=== PATIENT | female | born 1950 | race Caucasian/White ===

== ENCOUNTER → 2022-04-16 | Outpatient (CLI) | payer MEDICARE, BC, SELFPAY ==
--- NOTE | 2022-04-16 13:50 | EKG12_ITS ---
Test Reason : PRE OP Blood Pressure : / mmHG Vent. Rate : 077 BPM Atrial Rate : 077 BPM P-R Int : 190 ms QRS Dur : 064 ms QT Int : 380 ms P-R-T Axes : 077 073 073 degrees QTc Int : 430 ms Normal sinus rhythm Normal ECG Confirmed by HUYEN FONTENOT, ANASTACIA ([id number]), editor in chief newspaper RAHEEM QUINTANILLA ([id number]) on 04/17/2022 10:06:53 AM Referred By: Jr Pablo Confirmed By:ANASTACIA MATSON MD
[2022-04-16 16:06] LABS: Absolute Lymphocyte Count 2.48 X10^3/uL (0.83-4.51); Absolute Neutrophil Count 6.8 X10^3/uL (2.0-7.7); Basophil# 0.05 X10^3/uL; Basophil% 0.5 % (0-1); Eosinophil# 0.26 X10^3/uL; Eosinophils% 2.5 % (0-5); Hematocrit 40.2 % (37-47); Lymphocyte # 2.48 X10^3/ul (0.83-4.51); Mean Corp Hgb Conc 32.3 g/dL (32-36); Mean Corpuscular Hgb 30.4 pg (27.0-32.0); Mean Corpuscular Volume 94.1 fL (81-99); Mean Platelet Vol. 10.6 fl (6.2-12.0); Monocyte# 0.71 X10^3/uL; Monocyte% 6.9 % (0-10); NRBC Flagged by Analyzer 0 % (0-5); Neutrophil # 6.83 X10^3/uL (2.7-7.7); Neutrophil % 65.9 % (47-70); Platelet Count 337 K/mm3 (150-450); RBC Distribution Width CV 12.6 % (11.6-14.6); RBC Distribution Width SD 43.4 fl (35.1-43.9); Red Blood Count 4.27 M/mm3 (4.2-5.4); White Blood Count 10.4 K/mm3 (4.4-11.0)
[2022-04-16 16:42] LABS: Albumin, Serum 3.6 g/dL (3.2-5.0); Anion Gap 2 (5-15); BUN 19 mg/dL (7-18); BUN/Creat Ratio 17.6 RATIO (10-20); Calcium,Total 8.6 mg/dL (8.5-10.1); Chloride 108 mmol/L (98-107); Creatinine, Serum 1.08 mg/dL (0.55-1.02); EST Glomerular Filtration Rate 53 mL/min (>60); Est Glom Filt Rate - Afr Amer 64 mL/min (>60); Glucose 101 mg/dL (74-106); Potassium 3.9 mmol/L (3.5-5.1); Sodium Level 140 mmol/L (136-145)
[2022-04-16 17:07] LABS: Hemoglobin A1c 5.9 % (3.8-5.6)
== END | disposition home or self-care (01) ==
PROVIDERS: Referring Provider Physician Assistant; Visit Provider Physician Assistant
DX: Z01.818 Encounter for other preprocedural examination (principal)
CPT/HCPCS: 36415; 80048; 82040; 83036; 85025; 93005

== ENCOUNTER → 2022-04-26 | Outpatient (CLI) | payer MEDICARE, BC, SELFPAY ==
--- NOTE | 2022-04-26 12:00 | HIP_PTH ---
PATIENT: HOLLEY CASTELLANOS LOC: [facility] U#:[id number] AGE/SX: 71/F ROOM: RE04/26/[address]: Dr. Manan Guthrie DO : 1950 BED: DIS: 04/26/2022 SPEC #: [id number] RECD: 04/30/22 09:33 STATUS: SOBIA REQ #: [id number] DEVORA: 04/26/22 12:[address]: Manan Guthrie DEPT: SURGICAL PATHOLOGY RECD BY: Teetee Handy ENTERED: 04/30/22 09:33 SP TYPE: TOTAL HIP OTHR DR: No Primary Care Phys [facility] Tissues: Hip, NOS Procedures: Decalcification bone/plaque Surgery Specimen Level IV HEADER OPERATION: Total left hip arthroplasty PRE-OP DIAGNOSIS: Unilateral primary osteoarthritis left hip TISSUE SUBMITTED: Left hip bone and tissue MICROSCOPIC DIAGNOSIS Bone and tissue of left hip, total hip resection: Severe degenerative joint disease. AM:brina 05/03/2022 MICROSCOPIC DESCRIPTION Slides are reviewed. GROSS DESCRIPTION Received is one container labeled with the patient's name and designated left hip bone and tissue. The specimen consists of a gonzalez femoral head measuring 5.5 x 4.5 x 4.5 cm. The articular surface displays prominent osteophyte formation, eburnation and bone erosion. Also present in the specimen container are multiple irregular fragments of bone reamings and pink-yellow soft tissue measuring in aggregate 7 x 6 x 0.5 cm. [employer] Instrument Repairer sections are submitted in two cassettes after decalcification as follows: 1??bone reamings, 2 - femoral head. / AM:brina 04/30/2022 TC:5 CPT: 58061, 76943
== END | disposition home or self-care (01) ==
PROVIDERS: Referring Provider Orthopaedic Surgery; Visit Provider Orthopaedic Surgery
DX: M16.12 Unilateral primary osteoarthritis, left hip (principal)
CPT/HCPCS: 88305; 88311